=== PATIENT | male | born 1975 | race Caucasian/White ===

== ENCOUNTER 2020-01-14 16:06 | Inpatient (IN) | payer MEDICARE, MEDICAID ==
[~2020-01-14] VITALS: Ht 177.8 cm; Wt 95.7 kg
[2020-01-14] MEDS ORDERED: EFFEXOR37.5 MG PO (16:29)
[2020-01-14] MEDS ORDERED: BUSPAR 15 MG TA15 MG PO (16:29)
[2020-01-14 17:11] LABS: BASOPHILS 0.4 % (0-2); EOSINOPHILS 2.5 % (0-7); HEMATOCRIT 44.1 % (42.0-54.0); HEMOGLOBIN 15.2 g/dL (13.5-17.5); IMMATURE GRANULOCYTES 0.2 % (0-5); LYMPHOCYTES 19.9 % (15-50); MCH 31.5 pg (26.0-34.0); MCHC 34.5 g/dL (31.0-37.0); MCV 91.3 fL (80.0-100.0); MEAN PLATELET VOLUME 8.7 fL (7.4-10.4); MONOCYTES 9.1 % (2-11); NEUTROPHILS 67.9 % (40-80); PLATELET COUNT 337 10x3/uL (130-400); RBC 4.83 10x6/uL (4.20-6.10); RDW 13.5 % (11.5-14.5); WBC 11.4 10x3/uL (4.8-10.8)
[2020-01-14 17:22] LABS: CALC OSMOLALITY 278 mosm/kg (275-300); CALCIUM 9.3 mg/dL (8.5-10.1); CARBON DIOXIDE 27.5 mmol/L (21.0-32.0); CHLORIDE - SERUM 103 mmol/L (98-107); GLUCOSE 87 mg/dL (74-106); SODIUM 140 mmol/L (136-145); UREA NITROGEN 15 mg/dL (7-18); eGFR NON AFRICAN AMERICAN 87 mL/min (90-120)
[2020-01-14 17:29] LABS: ALKALINE PHOSPHATASE 178 U/L (30-120); ALT (SGPT) 70 U/L (10-68); BILIRUBIN - TOTAL 0.55 mg/dL (0.2-1.3); PROTEIN - SERUM 8.2 g/dL (6.4-8.2)
[2020-01-14 17:46] LABS: AMYLASE - SERUM 418 U/L (25-115); LIPASE 2358 U/L (73-393); TROPONIN-I < 0.017 ng/mL (0.000-0.060)
[2020-01-14 19:11] LABS: BILIRUBIN NEGATIVE (NEGATIVE); GLUCOSE NEGATIVE (NEGATIVE); KETONE NEGATIVE (NEGATIVE); NITRITE NEGATIVE (NEGATIVE); SPECIFIC GRAVITY 1.015 (1.005-1.020); UROBILINOGEN NORMAL (NORMAL)
[2020-01-14 20:00] VITALS: BP 142/92
[2020-01-14 21:00] VITALS: BP 163/92
--- NOTE | 2020-01-14 21:08 | NUR ---
PT LYING SUPINE IN BED. NO ACUTE DISTRESS NOTED. PT DENIES ANY NEEDS AT THIS TIME. WILL CONTINUE TO MONITOR.
--- NOTE | 2020-01-14 22:13 | NUR ---
RECEIVED PT VIA WC FROM ED, PT TO ROOM 1223, PT TRANSFERS SELF TO BED, IV IN RIGHT AC INTACT WITH NO REDNESS OR EDEMA, NS TO PUMP INFUSING AT 150 ML/HR, INFORMED PT THAT I WILL BE BACK IN A FEW MINUTES TO START ADMISSION ASSESSMENT, PT VERBALIZES UNDERSTANDING, PT ORIENTED TO ROOM, BED IN LOW POSITION, SIDE RAILS X 2, CALL LIGHT IN REACH
[2020-01-14 22:19] VITALS: BP 158/98; BMI 30.3
--- NOTE | 2020-01-14 22:19 | NUR ---
ADMISSION ASSESSMENT, HISTORY, AND MED REC INITIATED
--- NOTE | 2020-01-14 23:08 | NUR ---
ADMISSION HISTORY, ASSESSMENT, AND MED REC COMPLETED, PT CHANGED INTO GOWN, REQUESTS TO LEAVE SHORTS ON, PT UP TO BR, VOIDED WITH NO DIFFICULTY, PT BACK TO BED, NEW BAG OF NS HUNG VIA PUMP INFUSING AT 150 ML/HR, PT REQUEST PAIN MED AT THIS TIME
--- NOTE | 2020-01-14 23:13 | NUR ---
ADM MORPHINE, DILUTED IN 5MLS OF NS, AND ZOFRAN SIVP PER MD ORDERS, SKID SOCKS PLACED ON AT THIS TIME, PT INST TO USE CALL LIGHT WHEN NEEDING TO GET UP TO VOID, PT VERBALIZES UNDERSTANDING, PT INST ON NPO STATUS, VERBALIZES UNDERSTANDING, PT DENIES FURTHER NEEDS, BED IN LOW POSITION, SIDE RAILS X 2, CALL LIGHT IN REACH
[2020-01-15] VITALS (10 sets, daily range): BP systolic 126–186; BP diastolic 76–111; Ht 177.8 cm; Wt 95.7 kg
--- NOTE | 2020-01-15 00:30 | NUR ---
PT RESTING WITH EYES CLOSED, RESP QUIET, NO DISTRESS NOTED, LEFT UNDISTURBED AT THIS TIME
--- NOTE | 2020-01-15 01:29 | NUR ---
PT RESTING WITH EYES CLOSED, RESP QUIET, NO DISTRESS NOTED, LEFT UNDISTURBED AT THIS TIME, BED IN LOW POSITION, SIDE RAILS X 2, CALL LIGHT IN REACH
--- NOTE | 2020-01-15 03:22 | NUR ---
PT AWAKE, VS OBTAINED, PT REFUSES TO WEAR SCD'S, C/O UPPER ABD PAIN, ADM MORPHINE DILUTED IN 5MLS OF NS, SIVP PER MD ORDERS, SEE INES CAMPO, NURSE PRACTITIONER, IN ROOM, REPORT OF BP, PT DENIES FURTHER NEEDS AT THIS TIME, BED IN LOW POSITION, SIDE RAILS X 2, CALL LIGHT IN REACH
--- NOTE | 2020-01-15 05:40 | NUR ---
NEW BAG OF NS HUNG PER MD ORDERS, SEE EMAR
--- NOTE | 2020-01-15 06:06 | NUR ---
PT AWAKE, LAB IN ROOM FOR AM BLOOD DRAW, ADM PROTONIX WITH SMALL SIP OF WATER
[2020-01-15 06:22] LABS: BASOPHILS 0.5 % (0-2); EOSINOPHILS 2.5 % (0-7); HEMATOCRIT 41.3 % (42.0-54.0); HEMOGLOBIN 13.8 g/dL (13.5-17.5); IMMATURE GRANULOCYTES 0.3 % (0-5); LYMPHOCYTES 16.8 % (15-50); MCH 31.2 pg (26.0-34.0); MCHC 33.4 g/dL (31.0-37.0); MONOCYTES 11.3 % (2-11); NEUTROPHILS 68.6 % (40-80); PLATELET COUNT 274 10x3/uL (130-400); RBC 4.42 10x6/uL (4.20-6.10); RDW 13.8 % (11.5-14.5); WBC 10.9 10x3/uL (4.8-10.8)
--- NOTE | 2020-01-15 06:27 | NUR ---
PT UP IN BR, VOMITED MOD AMOUNT, PT BACK TO BED, ADM ZOFRAN SIVP PER MD ORDERS, SEE EMAR, PT DENIES FURTHER NEEDS
[2020-01-15 06:44] LABS: ALBUMIN 3.4 g/dL (3.4-5.0); ALKALINE PHOSPHATASE 224 U/L (30-120); BILIRUBIN - TOTAL 2.53 mg/dL (0.2-1.3); CALCIUM 8.7 mg/dL (8.5-10.1); CARBON DIOXIDE 29.9 mmol/L (21.0-32.0); CHLORIDE - SERUM 104 mmol/L (98-107); CREATININE - SERUM 0.9 mg/dL (0.6-1.3); GLUCOSE 118 mg/dL (74-106); MAGNESIUM - SERUM 1.9 mg/dL (1.8-2.4); MCV 93.4 fL (80.0-100.0); PHOSPHOROUS 3.3 mg/dL (2.5-4.9); POTASSIUM - SERUM 4.2 mmol/L (3.5-5.1); PROTEIN - SERUM 7.1 g/dL (6.4-8.2); SODIUM 140 mmol/L (136-145); eGFR NON AFRICAN AMERICAN > 90 mL/min (90-120)
[2020-01-15 06:57] LABS: ALT (SGPT) 302 U/L (10-68); CALC OSMOLALITY 278 mosm/kg (275-300); UREA NITROGEN 11 mg/dL (7-18)
[2020-01-15 06:58] LABS: APTT 34.8 SECONDS (22.8-39.4); INR 1.03 (0.85-1.17); PROTIME 13.5 SECONDS (11.6-15.0)
--- NOTE | 2020-01-15 07:40 | NUR ---
THIS RN TO ROOM FOR PT VOMITING IN BR TOILET. FACE CLEANED WITH COOL CLOTH. PT BACK TO BED, REMINDED EMESIS BAG IS ON BEDSIDE TABLE FOR USE IF HE DOES NOT HAVE TIME TO MAKE IT TO BR TO VOMIT. PT STATES HE WOULD RATHER GET UP TO BR TO VOMIT. PT C/O PAIN RATED 9/10, REQUESTING PAIN MED. WILL ADMIN ORDERED. SRUx2, CL IN REACH.
--- NOTE | 2020-01-15 08:20 | NUR ---
SHIFT ASSESSMENT COMPLETE, BP NOTED TO BE ELEVATED. WILL TREAT PAIN AND REASSESS. SEE FLOWSHEET FOR ASSESSMENT DOC. SRUx2, CL IN REACH. WILL CONT TO MONITOR.
--- NOTE | 2020-01-15 08:35 | NUR ---
DIRK SAAVEDRA ROUNDING ON DR BRASWELL'S PATIENTS. NOTIFIED OF PT'S BP AND MET APRESOLINE CRITERIA, BUT ALSO JUST PUSHED 4MG MORPHINE. RHONDA STATES MAY BE PAIN RELATED, ORDER RECEIVED TO RECHECK BP BEFORE ADMIN APRESOLINE. ALSO NOTIFIED OF PT'S NAUSEA/VOMITING AFTER PROTONIX PO THIS AM AND CONTINUES AFTER ZOFRAN ADMIN. ORDER RECEIVED TO CHANGE PROTONIX TO IV ROUTE, AND PT MAY HAVE 25MG PHENERGAN IM Q8H PRN N/V. WILL PROCEED ORDERED.
--- NOTE | 2020-01-15 10:08 | NUR ---
CARDIO/NEURO PHONED AND NOTIFIED OF NEED FOR EKG PER ORDER, STATES WILL COME TO UNIT SHORLTY.
--- NOTE | 2020-01-15 13:45 | NUR ---
KATYA, RN TO PT BEDSIDE. PT BACK TO BED FROM SHOWER. IV WRAPPING REMOVED AND IV FLUIDS RESUMED ORDERED. RIGHT ARM PLASTIC COVERING REMOVED FROM DRESSING OVER BURN, NOTED TO BE C/D/I. SCD'S REPLACED TO LE BILAT. PT DENIES NEEDS. SRUx2, WILL CONT TO MONITOR.
--- NOTE | 2020-01-15 14:34 | NUR ---
Jacob ELLIS APRN NOTIFIED OF PT'S BP POST MORPHINE DOSE AT 1335 OF 186/107, FOLLOWED BY 10MG APRESOLINE IV PER ORDER WITH PARAMETERS. INFORMED THAT BP RECHECK AT 1415 WAS 173/111. ORDER RECEIVED TO OBTAIN MANUAL BP AND NOTIFY OF RESULTS.
--- NOTE | 2020-01-15 14:48 | NUR ---
DIRK SAAVEDRA NOTIFIED OF MANUAL BP RESULT AND PT VOMITING. STATES WILL ENTER ORDERS AND ADJUST MEDS.
--- NOTE | 2020-01-15 15:16 | NUR ---
BUSPAR AND LISINOPRIL ADMIN PO ORDERED, PT DRY HEAVING. ZOFRAN DRIP INFUSING ORDERED, COOL CLOTH GIVEN ALONG WITH EXTRA EMESIS BAGS. PT REFUSES NEEDING PRN PHENERGAN IM. WILL CONT TO MONITOR.
--- NOTE | 2020-01-15 16:52 | NUR ---
DR MEEK TO PT ROOM ROUNDING ON PT, NO NEW ORDERS RECEIVED.
--- NOTE | 2020-01-15 17:05 | NUR ---
PT UP TO SHOWER AT THIS TIME. PT PROVIDED SHOWER CHAIR, LINENS AND TOILETRIES. PT INSTRUCTED TO PULL EMERGENCY LIGHT IN SHOWER IF BEGINS TO FEEL FAINT. PT VERBALIZES UNDERSTANDING. BED LINENS CHANGED.
--- NOTE | 2020-01-15 17:15 | NUR ---
DR KENDALL TO PT ROOM FOR ROUNDING, PT STILL SHOWERING, STATES WILL RETURN TO SEE PT LATER.
--- NOTE | 2020-01-15 17:26 | NUR ---
PT FINISHED WITH SHOWER. PT BACK TO BED, TEXTING ON PHONE. PIV SITE CLEAR. PT STATES "I FEEL SO MUCH BETTER SINCE MY SHOWER".
--- NOTE | 2020-01-15 19:30 | NUR ---
REPORT GIVEN BY RANULFO DODGE
--- NOTE | 2020-01-15 19:30 | NUR ---
REPORT GIVEN BY RANULFO DODGE
--- NOTE | 2020-01-15 20:00 | NUR ---
IN PT ROOM FOR VS. HE WANTS HIS DRESSING CHANGE DONE "RIGHT NOW" I EXPLAINED THAT I COULD NOT DO IT RIGHT THAT MINUTE AND HE WAS OK WITH THAT. HE IS DOING WELL. HE IS USING HIS FUNDRAISING COORDINATOR PUMP. HEART SOUNDS WNL. LUNGS SOUND CLEAR. BOWEL SOUNDS HEARD. HIS DRESSING NOW IS DRY AND INTACT. PT IS ABLE TO SEE THE BIG BLISTER RIGHT UNDER THE DRESSING AND WANTS ME TO POP IT. I EXPLAINED THAT THE BLISTERS NEED TO STAY BLISTERS FOR LONG POSSIBLE.
--- NOTE | 2020-01-15 20:00 | NUR ---
IN TO ASSESS PT. UPON ENTERING ROOM PT HAD HIS COVERS PULLED BACK AND STROKING HIS GENITALIA. PT REQUESTED PAIN MEDS. ASSESSMENT WAS COMPLETED AT BEDSIDE. SEE DOCUMENTATION. IV INFUSING AT 125 ML/HR IN HIS RIGHT AC. NO SIGNS OF INFILTRATION. PT GETS UP TO GO TO THE BATHROOM WITHOUT ASSISTANCE. PT STATES HIS PAIN IS IN HIS ABDOMEN.
--- NOTE | 2020-01-15 21:00 | NUR ---
IN PT ROOM TO GIVE PAIN MEDICATION. PT ONCE AGAIN HAD HIS GENITALIA ON DISPLAY WITH STROKING MOTION. PT RATES PAIN AN 8.
--- NOTE | 2020-01-15 22:00 | NUR ---
CHECKED IN WITH PT. HE STATES HE CANNOT TELL ANY CHANGE IN HIS PAIN SINCE HE GOT HIS IV INJECTION OF DILAUDID. STILL PLAYING WITH [employer]. PT DOES COVER HIMSELF UP WHEN NURSE WALKS IN. NURSE ALWAYS KNOCKS BEFORE ENTERING ROOM. THERE IS A VERY UNPLEASANT ODOR IN PT ROOM.
--- NOTE | 2020-01-15 23:00 | NUR ---
DRESSING CHANGED PERFORMED. DRESSING WAS REMOVED WITH SCISSORS. USING STERILE GLOVES BACTROBAN COVERED HIS LEFT ARM TO ABOVE THE ELBOW. PT HAD BACTROBAN RUBBED ALL OVER ARM USING STERILE GLOVES. BURN SITE IS MAROON AND LEGGETT IN COLOR. NON ADHERENT PADS USED TO COVER ARM. KERLEX GAUZE WAS USED TO WRAP THE ARM A LOOSE DRESSING. PT TOLERATED THE PROCEDURE WELL. HE STATES HE IS GOING TO SLEEP.
[2020-01-16] VITALS: BP 120/64
--- NOTE | 2020-01-16 | NUR ---
PT SLEEPING. AWAKE FOR VS. NO C/O
--- NOTE | 2020-01-16 | NUR ---
IN ROOM FOR VS. PT REQUESTING PAIN MEDS RATES PAIN AT AN 8. I TOLD HIM THAT IT WOULD BE ANOTHER HOUR BEFORE PAIN MEDS DUE.
--- NOTE | 2020-01-16 01:00 | NUR ---
PAIN MED GIVEN TO PT. HE ONCE AGAIN IS WITH LEFT HAND ON GENATALIA.
[2020-01-16 04:30] VITALS: BP 112/62
--- NOTE | 2020-01-16 05:55 | NUR ---
TALK TO RADIOTELEGRAPHIST. NO C/O IV CONT TO INFUSE AT 125ML/HR
[2020-01-16 06:23] LABS: BASOPHILS 0.4 % (0-2); EOSINOPHILS 4.8 % (0-7); HEMOGLOBIN 14.5 g/dL (13.5-17.5); IMMATURE GRANULOCYTES 0.2 % (0-5); LYMPHOCYTES 23.5 % (15-50); MCH 31.5 pg (26.0-34.0); MCHC 33.7 g/dL (31.0-37.0); MCV 93.3 fL (80.0-100.0); MEAN PLATELET VOLUME 9.2 fL (7.4-10.4); MONOCYTES 9.7 % (2-11); NEUTROPHILS 61.4 % (40-80); PLATELET COUNT 314 10x3/uL (130-400); RBC 4.61 10x6/uL (4.20-6.10); RDW 13.7 % (11.5-14.5); WBC 10.4 10x3/uL (4.8-10.8)
[2020-01-16 06:46] LABS: ALBUMIN 3.6 g/dL (3.4-5.0); ALKALINE PHOSPHATASE 300 U/L (30-120); ALT (SGPT) 305 U/L (10-68); BILIRUBIN - TOTAL 3.41 mg/dL (0.2-1.3); CALC OSMOLALITY 279 mosm/kg (275-300); CALCIUM 8.9 mg/dL (8.5-10.1); CARBON DIOXIDE 28.4 mmol/L (21.0-32.0); CHLORIDE - SERUM 105 mmol/L (98-107); CREATININE - SERUM 0.9 mg/dL (0.6-1.3); GLUCOSE 71 mg/dL (74-106); MAGNESIUM - SERUM 1.7 mg/dL (1.8-2.4); PHOSPHOROUS 3.1 mg/dL (2.5-4.9); POTASSIUM - SERUM 4.2 mmol/L (3.5-5.1); SODIUM 142 mmol/L (136-145); UREA NITROGEN 10 mg/dL (7-18); eGFR NON AFRICAN AMERICAN > 90 mL/min (90-120)
[2020-01-16 08:11] LABS: HEPATITIS C ANTIBODY <0.1 S/CO RAT (0.0-0.9)
--- NOTE | 2020-01-16 08:21 | NUR ---
MG LEVEL 1.7. PHARMACY NOTIFIED OF NEED FOR MG RIDER AND WILL BRING TO UNIT.
[2020-01-16 08:59] VITALS: BP 135/96
[2020-01-16 09:10] LABS: ANA REFLEX - DIRECT Negative (Negative)
[2020-01-16 09:44] LABS: LIPASE 2206 U/L (73-393)
[2020-01-16 09:45] LABS: AMYLASE - SERUM 583 U/L (25-115)
--- NOTE | 2020-01-16 10:36 | NUR ---
PAIN REASSESSMENT COMPLETED. LAYING IN SEMI-FOWLERS POSITION RESTING WITH EYES CLOSED. RESP REGULAR AND UNLABORED, NO S/S OF DISTRESS NOTED. BED IN LOW POSIITON WITH SRUP X2. CALL LIGHT AND PHONE WITHIN REACH. WILL CONTINUE TO MONITOR.
[2020-01-16 11:00] VITALS: BP 170/92
--- NOTE | 2020-01-16 12:34 | NUR ---
REPORT CALLED TO RANULFO BERNARDO.
--- NOTE | 2020-01-16 13:38 | NUR ---
PT TO ROOM 2225 FOR CONT CARE. RANULFO BERNARDO NOTIFIED AND WILL RESUME CARE. PT ORIENTED TO ROOM AND CALL LIGHT USE VERBALIZES UNDERSTANDING. CONTINUES TO REFUSE SCD'S. BED IN LOW POSITION WITH SRUP X2. CALL LIGHT AND PHONE WITHIN REACH.
--- NOTE | 2020-01-16 13:42 | NUR ---
ALERT AND ORIENTED TO SELF AND FAMILIAR FACES DUE TO COGNITIVE DEFICIT.IV NOTED TO RT. A/C WITH NO S/S OF INFECTION/INFILTRATION.BOWEL SOUNDS NOTED WITH RUQ ABDOMINAL PAIN ON PALPATION. ENCOURAGED TO USE CALL LIGHT FOR ASSIST.
--- NOTE | 2020-01-16 18:57 | MORECARE ---
CASE MANAGEMENT DISCHARGE SUMMARY PATIENT: VINI VERGARA UNIT: [id number] ADM DATE: 01/14/20 AGE: 44 : 77 SEX: M ROOM/BED: D.2225 AUTHOR: JOSE MANUEL MENDOZA PHYSICIAN: REFERRING PHYSICIAN: DARIO BRASWELL MD DATE OF SERVICE: 01/16/20 Discharge Plan Patient Name: VINI VERGARA Facility: [facility]:[place] : 1975 Planned Disposition: Anticipated Discharge Date: Discharge Date: Expected LOS: Initial Reviewer: [email or web address] Initial Review Date: 01/14/2020 Generated: 01/16/20 7:57 pm Comments DCP- Discharge Planning Updated by [email or web address]: Radha Hodgson on 01/16/20 5:[address] CM met with patient to discuss initial discharge planning. Patient is in agreement to proceed with the assessment. Patient reports that he lives at [facility]. Patient is alert/oriented. Stairs/steps: No. PCP: None. Pharmacy: [facility]. Patient states he has been able to obtain all of his prescribed medications. HHS: No. DME: No. Patient does not give permission to speak with family members/care givers. Emergency contact: Corin Jim (friend) [phone]. 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 CM discussed the availability of HH, Rehab, DME services. Patient denies the need for additional services at this time and feels safe returning to previous environment. Patient was just DC'd from [facility] (psych) this Monday.Patient denies the use of community resources KNURLING MACHINE TENDER. Transportation at time of discharge: [facility]. Patient plans to move back to [place] at the beginning of the month. CM will assist PRN with DC Needs/plans. Coverage Notice Reviewer: [id number] - Radha Hodgson Notice Issued Date-Time: 01/16/2020 18:47 Notice Type: IM Admission Notice Notice Delivered To: Patient Relationship to Patient: Self Staff Analyst Name: Delfino Vergara Delivery Method: HAND - Hand Delivered Melanie Days: Prior Verbal Notification: Recipient Understood Notice: Yes Recipient Signature: Yes Med Rec Note Co-signed by Attending: Coverage Notice Comment: IMM signed by and given to patient. Original on the chart. Patient Name: VINI VERGARA Page [phone] at 1857 All edits/amendments must be made on the electronic document DICTATION DATE: 01/16/201856 [employer]LAY [employer]ODUCTS MACHINE OPERATOR: DANIEL 01/16/201856 RPT#: [id number] DC DATE: STATUS: ADM IN [facility] [address] [place] [address] END OF REPORT
[2020-01-16 20:00] VITALS: BP 154/84
[2020-01-17 04:00] VITALS: BP 168/89
[2020-01-17 04:48] LABS: BASOPHILS 0.6 % (0-2); EOSINOPHILS 5.9 % (0-7); HEMOGLOBIN 14.7 g/dL (13.5-17.5); IMMATURE GRANULOCYTES 0.2 % (0-5); LYMPHOCYTES 20.7 % (15-50); MCHC 34.2 g/dL (31.0-37.0); MCV 93.5 fL (80.0-100.0); MEAN PLATELET VOLUME 8.9 fL (7.4-10.4); MONOCYTES 10.6 % (2-11); PLATELET COUNT 295 10x3/uL (130-400); RDW 13.6 % (11.5-14.5); WBC 9.8 10x3/uL (4.8-10.8)
[2020-01-17 05:10] LABS: ALBUMIN 3.7 g/dL (3.4-5.0); ALKALINE PHOSPHATASE 354 U/L (30-120); CALC OSMOLALITY 276 mosm/kg (275-300); CARBON DIOXIDE 27.8 mmol/L (21.0-32.0); CHLORIDE - SERUM 104 mmol/L (98-107); CREATININE - SERUM 0.9 mg/dL (0.6-1.3); GLUCOSE 71 mg/dL (74-106); MAGNESIUM - SERUM 1.9 mg/dL (1.8-2.4); PROTEIN - SERUM 7.6 g/dL (6.4-8.2); SODIUM 140 mmol/L (136-145); UREA NITROGEN 12 mg/dL (7-18); eGFR NON AFRICAN AMERICAN > 90 mL/min (90-120)
[2020-01-17 05:11] LABS: ALT (SGPT) 228 U/L (10-68); AMYLASE - SERUM 415 U/L (25-115); LIPASE 2299 U/L (73-393)
[2020-01-17 08:47] VITALS: BP 159/90
--- NOTE | 2020-01-17 09:00 | NUR ---
ALERT AND ORIENTED WITH IVF AND ZPFRAN GTT INFUSING AT PRESCRIBED RAT3E TO RT. A/C W/O ANY S/S OF INFECTION/INFILTRATION. LUCILA SINGH PRN GOR GENERALIZED ABDOMINAL PAIN 05/15 WITH MEDICATION EFFECTIVE. PATIENT REFUSES SCD'S AT THIS TIME. UP ADLIB TO BATHROOM. ENCOURAGED TO USE CALL LIGHT FOR ASSSIT.
[2020-01-17 12:38] VITALS: BP 166/94
[2020-01-17 15:10] LABS: IGG SUBCLASS 1 777 mg/dL (248-810); IGG SUBCLASS 2 276 mg/dL (130-555); IGG SUBCLASS 3 116 mg/dL (15-102); IGG SUBCLASS 4 16 mg/dL (2-96); IGGS - IGG SERUM 1206 mg/dL (700-1600)
[2020-01-17 17:16] VITALS: BP 161/92
[2020-01-17 20:00] VITALS: BP 177/100
[2020-01-18 04:00] VITALS: BP 145/82
[2020-01-18 05:55] LABS: BASOPHILS 0.4 % (0-2); EOSINOPHILS 5.5 % (0-7); HEMATOCRIT 43.8 % (42.0-54.0); HEMOGLOBIN 14.7 g/dL (13.5-17.5); IMMATURE GRANULOCYTES 0.2 % (0-5); LYMPHOCYTES 18.4 % (15-50); MCH 31.6 pg (26.0-34.0); MCHC 33.6 g/dL (31.0-37.0); MCV 94.2 fL (80.0-100.0); MEAN PLATELET VOLUME 9.2 fL (7.4-10.4); MONOCYTES 9.3 % (2-11); NEUTROPHILS 66.2 % (40-80); PLATELET COUNT 313 10x3/uL (130-400); RBC 4.65 10x6/uL (4.20-6.10); RDW 13.7 % (11.5-14.5); WBC 10.6 10x3/uL (4.8-10.8)
[2020-01-18 06:15] LABS: ALBUMIN 3.5 g/dL (3.4-5.0); ALKALINE PHOSPHATASE 316 U/L (30-120); ALT (SGPT) 173 U/L (10-68); CALC OSMOLALITY 280 mosm/kg (275-300); CARBON DIOXIDE 30.4 mmol/L (21.0-32.0); CHLORIDE - SERUM 103 mmol/L (98-107); CREATININE - SERUM 0.9 mg/dL (0.6-1.3); GLUCOSE 92 mg/dL (74-106); MAGNESIUM - SERUM 1.8 mg/dL (1.8-2.4); PHOSPHOROUS 3.7 mg/dL (2.5-4.9); POTASSIUM - SERUM 3.8 mmol/L (3.5-5.1); PROTEIN - SERUM 7.4 g/dL (6.4-8.2); SODIUM 141 mmol/L (136-145); UREA NITROGEN 12 mg/dL (7-18); eGFR NON AFRICAN AMERICAN > 90 mL/min (90-120)
[2020-01-18 06:25] LABS: AMYLASE - SERUM 222 U/L (25-115); LIPASE 1662 U/L (73-393)
[2020-01-18 08:08] VITALS: BP 146/75
--- NOTE | 2020-01-18 10:21 | NUR ---
RESTING IN BED, NO DISTRESS NOTED, IV INFUSING, CONT TO MONITOR PAIN AND INTAKE
[2020-01-18 12:43] VITALS: BP 167/93
[2020-01-18 17:05] VITALS: BP 139/95
[2020-01-18 19:46] VITALS: BP 160/91
[2020-01-19 01:20] VITALS: BP 145/75
[2020-01-19 05:12] VITALS: BP 136/75
[2020-01-19 05:20] LABS: BASOPHILS 0.7 % (0-2); EOSINOPHILS 5.3 % (0-7); HEMOGLOBIN 14.9 g/dL (13.5-17.5); IMMATURE GRANULOCYTES 0.1 % (0-5); LYMPHOCYTES 25.1 % (15-50); MCH 31.8 pg (26.0-34.0); MCHC 33.9 g/dL (31.0-37.0); MONOCYTES 11.1 % (2-11); NEUTROPHILS 57.7 % (40-80); PLATELET COUNT 307 10x3/uL (130-400); RBC 4.68 10x6/uL (4.20-6.10); RDW 13.6 % (11.5-14.5); WBC 9.2 10x3/uL (4.8-10.8)
[2020-01-19 05:33] LABS: ALBUMIN 3.5 g/dL (3.4-5.0); ALKALINE PHOSPHATASE 273 U/L (30-120); BILIRUBIN - TOTAL 0.82 mg/dL (0.2-1.3); CALC OSMOLALITY 280 mosm/kg (275-300); CARBON DIOXIDE 31.5 mmol/L (21.0-32.0); CHLORIDE - SERUM 103 mmol/L (98-107); CREATININE - SERUM 0.8 mg/dL (0.6-1.3); GLUCOSE 95 mg/dL (74-106); MAGNESIUM - SERUM 1.7 mg/dL (1.8-2.4); PHOSPHOROUS 3.9 mg/dL (2.5-4.9); POTASSIUM - SERUM 3.9 mmol/L (3.5-5.1); PROTEIN - SERUM 7.4 g/dL (6.4-8.2); SODIUM 141 mmol/L (136-145); UREA NITROGEN 12 mg/dL (7-18); eGFR NON AFRICAN AMERICAN > 90 mL/min (90-120)
[2020-01-19 05:35] LABS: ALT (SGPT) 123 U/L (10-68); AMYLASE - SERUM 149 U/L (25-115); LIPASE 794 U/L (73-393)
[2020-01-19 08:06] VITALS: BP 175/88
--- NOTE | 2020-01-19 09:00 | NUR ---
ASSESSMENT PER FLOW SHEET. PATIENT IS WITHOUT DISTRESS.
--- NOTE | 2020-01-19 11:30 | NUR ---
MEDS ORDERED FOR NAUSEA
[2020-01-19 12:34] VITALS: BP 151/99
[2020-01-19 16:09] VITALS: BP 151/82
[2020-01-19 20:00] VITALS: BP 153/86
[2020-01-20] VITALS: BP 137/79
[2020-01-20 04:00] VITALS: BP 109/70
[2020-01-20 06:44] LABS: BASOPHILS 0.3 % (0-2); EOSINOPHILS 4.7 % (0-7); HEMATOCRIT 42.7 % (42.0-54.0); HEMOGLOBIN 14.3 g/dL (13.5-17.5); IMMATURE GRANULOCYTES 0.3 % (0-5); LYMPHOCYTES 19.3 % (15-50); MCH 31.4 pg (26.0-34.0); MCHC 33.5 g/dL (31.0-37.0); MCV 93.6 fL (80.0-100.0); MEAN PLATELET VOLUME 9.3 fL (7.4-10.4); MONOCYTES 10.5 % (2-11); NEUTROPHILS 64.9 % (40-80); PLATELET COUNT 302 10x3/uL (130-400); RBC 4.56 10x6/uL (4.20-6.10); RDW 13.9 % (11.5-14.5)
[2020-01-20 06:49] LABS: WBC 11.9 10x3/uL (4.8-10.8)
[2020-01-20 07:16] LABS: CALC OSMOLALITY 280 mosm/kg (275-300); CARBON DIOXIDE 31.6 mmol/L (21.0-32.0); CHLORIDE - SERUM 104 mmol/L (98-107); CREATININE - SERUM 0.9 mg/dL (0.6-1.3); GLUCOSE 92 mg/dL (74-106); POTASSIUM - SERUM 3.8 mmol/L (3.5-5.1); SODIUM 141 mmol/L (136-145); UREA NITROGEN 12 mg/dL (7-18); eGFR NON AFRICAN AMERICAN > 90 mL/min (90-120)
[2020-01-20 08:10] LABS: LIPASE 4701 U/L (73-393)
[2020-01-20 08:11] LABS: AMYLASE - SERUM 515 U/L (25-115)
[2020-01-20 09:09] VITALS: BP 149/83
--- NOTE | 2020-01-20 09:21 | NUR ---
NOTIFIED DR. SINGH ABOUT AMYLASE INCREASE. STATED TO TELL DR. MEEK TO SEE IF HE NEEDED A DIET CHANGE OR ANYTHING ELSE. PAGED DR. MEEK.
[2020-01-20 12:20] VITALS: BP 114/59
[2020-01-20 17:28] VITALS: BP 144/87
[2020-01-20 21:48] VITALS: BP 148/87
[2020-01-21 01:07] VITALS: BP 157/94
[2020-01-21 05:13] LABS: BASOPHILS 0.9 % (0-2); EOSINOPHILS 6.1 % (0-7); HEMATOCRIT 45.6 % (42.0-54.0); IMMATURE GRANULOCYTES 0.2 % (0-5); LYMPHOCYTES 22.7 % (15-50); MCH 31.7 pg (26.0-34.0); MCHC 32.9 g/dL (31.0-37.0); MEAN PLATELET VOLUME 9.2 fL (7.4-10.4); MONOCYTES 9.3 % (2-11); NEUTROPHILS 60.8 % (40-80); PLATELET COUNT 313 10x3/uL (130-400); RBC 4.73 10x6/uL (4.20-6.10); RDW 13.6 % (11.5-14.5); WBC 9.6 10x3/uL (4.8-10.8)
[2020-01-21 05:21] LABS: MCV 96.4 fL (80.0-100.0)
[2020-01-21 05:40] LABS: ALBUMIN 3.7 g/dL (3.4-5.0); ALKALINE PHOSPHATASE 412 U/L (30-120); BILIRUBIN - TOTAL 0.85 mg/dL (0.2-1.3); CALC OSMOLALITY 277 mosm/kg (275-300); CARBON DIOXIDE 33.8 mmol/L (21.0-32.0); CHLORIDE - SERUM 102 mmol/L (98-107); GLUCOSE 94 mg/dL (74-106); POTASSIUM - SERUM 3.7 mmol/L (3.5-5.1); PROTEIN - SERUM 7.8 g/dL (6.4-8.2); SODIUM 139 mmol/L (136-145); UREA NITROGEN 13 mg/dL (7-18); eGFR NON AFRICAN AMERICAN 87 mL/min (90-120)
[2020-01-21 05:56] LABS: ALT (SGPT) 170 U/L (10-68); AMYLASE - SERUM 322 U/L (25-115); LIPASE 1406 U/L (73-393)
[2020-01-21 06:00] VITALS: BP 140/82
[2020-01-21 09:12] VITALS: BP 124/54
[2020-01-21 13:06] VITALS: BP 158/92
[2020-01-21 17:03] VITALS: BP 142/88
--- NOTE | 2020-01-21 19:05 | NUR ---
ALERT AND ORIENTED WHEN ENTERING THE ROOM. PATIENT PLAYING ON CELL PHONE. ACTIVE BOWEL SOUNDS. EDUCATED ON CLEAR LIQUID DIET. ASKS WHEN PAIN MEDICINE IS AVAILABLE. LOOKED AT EMAR AND PATIENT JUST RECEIVED DOSE AT 1830. INSTRUCTED THAT IT WOULD BE AVAILABLE AROUND 2230. PATIENT VERBALIZES UNDERSTANDING. CPOC.
[2020-01-21 20:00] VITALS: BP 137/89
--- NOTE | 2020-01-21 22:15 | NUR ---
PATIENT HIT CALL LIGHT, STATES "JUST REMINDING YOU THAT ITS ALMOST TIME FOR MY PAIN MEDICINE." RATES PAIN 06/15. TOLD PATIENT IT WOULD BE AVAILABLE IN ABOUT 15-20 MINUTES.
[2020-01-22] VITALS: BP 140/102
--- NOTE | 2020-01-22 01:40 | NUR ---
ADMINISTERED PRN ZOFRAN PER REQUEST/PER ORDER. CPOC.
[2020-01-22 04:00] VITALS: BP 130/79
--- NOTE | 2020-01-22 04:07 | NUR ---
I have reviewed this patient and I concur with the Shift Assessment completed by the Licensed Practical Nurse today this shift.
[2020-01-22 05:25] LABS: EOSINOPHILS 7.7 % (0-7); HEMATOCRIT 46.6 % (42.0-54.0); HEMOGLOBIN 15.4 g/dL (13.5-17.5); IMMATURE GRANULOCYTES 0.2 % (0-5); LYMPHOCYTES 25.7 % (15-50); MCH 31.6 pg (26.0-34.0); MCV 95.5 fL (80.0-100.0); MEAN PLATELET VOLUME 9.5 fL (7.4-10.4); MONOCYTES 11.2 % (2-11); NEUTROPHILS 54.2 % (40-80); PLATELET COUNT 304 10x3/uL (130-400); RBC 4.88 10x6/uL (4.20-6.10); RDW 13.6 % (11.5-14.5); WBC 8.4 10x3/uL (4.8-10.8)
[2020-01-22 05:58] LABS: ALBUMIN 3.7 g/dL (3.4-5.0); ALKALINE PHOSPHATASE 475 U/L (30-120); BILIRUBIN - TOTAL 1.71 mg/dL (0.2-1.3); CALC OSMOLALITY 274 mosm/kg (275-300); CALCIUM 8.9 mg/dL (8.5-10.1); CARBON DIOXIDE 31.7 mmol/L (21.0-32.0); CHLORIDE - SERUM 101 mmol/L (98-107); CREATININE - SERUM 0.9 mg/dL (0.6-1.3); GLUCOSE 93 mg/dL (74-106); SODIUM 138 mmol/L (136-145); UREA NITROGEN 10 mg/dL (7-18); eGFR NON AFRICAN AMERICAN > 90 mL/min (90-120)
[2020-01-22 06:02] LABS: AMYLASE - SERUM 424 U/L (25-115)
[2020-01-22 06:03] LABS: ALT (SGPT) 247 U/L (10-68); LIPASE 2887 U/L (73-393)
--- NOTE | 2020-01-22 06:31 | NUR ---
ZORAIDA CHACON APN TO NOTIFY AMYLASE RESULTS
[2020-01-22 09:06] VITALS: BP 142/76
--- NOTE | 2020-01-22 10:44 | NUR ---
NUTRITION F/U CHART REVIEWED, PT VISIT. TOLERATING CLEAR LIQUIDS. LOW RESIDUE DIET PRIOR TO CURRENT CLEAR LIQUIDS. WILL MONITOR DIET ADVANCEMENT, ASSIST WITH NUTRITION SUPPORT IF NEEDED. RD FOLLOWING
[2020-01-22 12:50] VITALS: BP 151/88
[2020-01-22 16:44] VITALS: BP 137/89
--- NOTE | 2020-01-22 19:30 | NUR ---
PT SITTING UP IN BED WITHOUT DISTRESS, AOX4. IV LEFT HAND INFUSING NS @ 75, NO REDNESS OR SWELLING. STATES PAIN 9/10 IN ABD, SHARP AND TENDER TO TOUCH. DILAUDID GIVEN ORDERED. ASSISTED PT IN CHANGING GOWN, PROVIDED NEW SOCKS AND DEODORANT. DENIES OTHER NEEDS. CL IN REACH, WILL CTM
[2020-01-22 20:00] VITALS: BP 151/91
--- NOTE | 2020-01-22 23:30 | NUR ---
PT STATES PAIN 9/10 IN ABD, GAVE DILAUDID ORDERED. DENIES OTHER NEEDS. CL IN REACH, WILL CTM
[2020-01-23 04:00] VITALS: BP 14/943; BP 174/93
[2020-01-23 04:50] LABS: BASOPHILS 0.7 % (0-2); EOSINOPHILS 8.6 % (0-7); HEMATOCRIT 46.4 % (42.0-54.0); HEMOGLOBIN 15.4 g/dL (13.5-17.5); IMMATURE GRANULOCYTES 0.1 % (0-5); LYMPHOCYTES 29.3 % (15-50); MCH 31.7 pg (26.0-34.0); MCHC 33.2 g/dL (31.0-37.0); MCV 95.5 fL (80.0-100.0); MEAN PLATELET VOLUME 9.2 fL (7.4-10.4); MONOCYTES 10.6 % (2-11); NEUTROPHILS 50.7 % (40-80); PLATELET COUNT 300 10x3/uL (130-400); RBC 4.86 10x6/uL (4.20-6.10); RDW 13.6 % (11.5-14.5)
[2020-01-23 05:26] LABS: ALBUMIN 3.7 g/dL (3.4-5.0); ALKALINE PHOSPHATASE 508 U/L (30-120); CARBON DIOXIDE 32.1 mmol/L (21.0-32.0); CHLORIDE - SERUM 103 mmol/L (98-107); GLUCOSE 85 mg/dL (74-106); POTASSIUM - SERUM 3.8 mmol/L (3.5-5.1); PROTEIN - SERUM 7.9 g/dL (6.4-8.2); SODIUM 140 mmol/L (136-145); eGFR NON AFRICAN AMERICAN 87 mL/min (90-120)
[2020-01-23 05:30] LABS: ALT (SGPT) 353 U/L (10-68); CALC OSMOLALITY 277 mosm/kg (275-300); LIPASE 1489 U/L (73-393); UREA NITROGEN 13 mg/dL (7-18)
--- NOTE | 2020-01-23 09:00 | NUR ---
ASSESSMENT PER FLOW SHEET. PATIENT IS WITHOUT DISTRESS.MONITOR FOR NEEDS.CALL LIGHT IN REACH
[2020-01-23 09:06] VITALS: BP 151/95
[2020-01-23 09:30] LABS: INR 0.91 (0.85-1.17); PROTIME 12.3 SECONDS (11.6-15.0)
[2020-01-23 12:49] VITALS: BP 143/83
[2020-01-23 16:16] VITALS: BP 173/92
--- NOTE | 2020-01-23 18:21 | NUR ---
ATTEMPTED TO GET CONSENTS FOR ERCP IN AM. PT CONTINUED TO TEXT ON HIS PHONE. WILL CHECK BACK
[2020-01-23 20:00] VITALS: BP 163/83
[2020-01-24] VITALS: BP 176/97
[2020-01-24 05:57] LABS: BASOPHILS 0.7 % (0-2); EOSINOPHILS 8.1 % (0-7); HEMATOCRIT 44.5 % (42.0-54.0); HEMOGLOBIN 14.6 g/dL (13.5-17.5); IMMATURE GRANULOCYTES 0.1 % (0-5); LYMPHOCYTES 24.4 % (15-50); MCH 31.3 pg (26.0-34.0); MCHC 32.8 g/dL (31.0-37.0); MCV 95.5 fL (80.0-100.0); MEAN PLATELET VOLUME 9.5 fL (7.4-10.4); MONOCYTES 10.1 % (2-11); NEUTROPHILS 56.6 % (40-80); PLATELET COUNT 307 10x3/uL (130-400); RBC 4.66 10x6/uL (4.20-6.10); RDW 13.8 % (11.5-14.5); WBC 9.1 10x3/uL (4.8-10.8)
[2020-01-24 06:28] LABS: ALBUMIN 3.5 g/dL (3.4-5.0); ALKALINE PHOSPHATASE 463 U/L (30-120); ALT (SGPT) 313 U/L (10-68); CALC OSMOLALITY 280 mosm/kg (275-300); CALCIUM 9.2 mg/dL (8.5-10.1); CHLORIDE - SERUM 103 mmol/L (98-107); CREATININE - SERUM 0.8 mg/dL (0.6-1.3); GLUCOSE 93 mg/dL (74-106); POTASSIUM - SERUM 3.7 mmol/L (3.5-5.1); PROTEIN - SERUM 7.4 g/dL (6.4-8.2); SODIUM 141 mmol/L (136-145); UREA NITROGEN 12 mg/dL (7-18); eGFR NON AFRICAN AMERICAN > 90 mL/min (90-120)
--- NOTE | 2020-01-24 08:00 | NUR ---
ASSESSMENT PER FLOW SHEET. PT IS WITHOUT DISTRESS.NPO FOR PROCEDURE TODAY.CALL LIGHT IN REACH
[2020-01-24 09:39] VITALS: BP 147/95
--- NOTE | 2020-01-24 11:17 | NUR ---
PRE MEDS FOR GI
[2020-01-24 12:10] VITALS: BP 154/96
[2020-01-24 13:55] VITALS: BP 159/91
[2020-01-24 20:00] VITALS: BP 143/91
[2020-01-25] VITALS: BP 154/73; BP 160/95
[2020-01-25 04:00] VITALS: BP 142/88
[2020-01-25 06:30] LABS: EOSINOPHILS 7.7 % (0-7); HEMATOCRIT 41.8 % (42.0-54.0); HEMOGLOBIN 13.6 g/dL (13.5-17.5); IMMATURE GRANULOCYTES 0.2 % (0-5); LYMPHOCYTES 30.3 % (15-50); MCH 31.5 pg (26.0-34.0); MCHC 32.5 g/dL (31.0-37.0); MCV 96.8 fL (80.0-100.0); MEAN PLATELET VOLUME 9.2 fL (7.4-10.4); MONOCYTES 10.3 % (2-11); NEUTROPHILS 50.5 % (40-80); PLATELET COUNT 316 10x3/uL (130-400); RBC 4.32 10x6/uL (4.20-6.10); RDW 13.5 % (11.5-14.5); WBC 8.8 10x3/uL (4.8-10.8)
[2020-01-25 06:51] LABS: ALBUMIN 3.3 g/dL (3.4-5.0); ALKALINE PHOSPHATASE 365 U/L (30-120); BILIRUBIN - TOTAL 1.45 mg/dL (0.2-1.3); CALC OSMOLALITY 274 mosm/kg (275-300); CALCIUM 8.8 mg/dL (8.5-10.1); CARBON DIOXIDE 27.6 mmol/L (21.0-32.0); CHLORIDE - SERUM 103 mmol/L (98-107); CREATININE - SERUM 0.8 mg/dL (0.6-1.3); GLUCOSE 99 mg/dL (74-106); POTASSIUM - SERUM 3.8 mmol/L (3.5-5.1); PROTEIN - SERUM 6.7 g/dL (6.4-8.2); SODIUM 138 mmol/L (136-145); UREA NITROGEN 11 mg/dL (7-18); eGFR NON AFRICAN AMERICAN > 90 mL/min (90-120)
[2020-01-25 06:52] LABS: ALT (SGPT) 187 U/L (10-68)
[2020-01-25 07:00] VITALS: BP 142/85
--- NOTE | 2020-01-25 07:19 | NUR ---
PT SITTING UP IN BED PLAYING ON PHONE, NO S/SX OF DISTRESS, STATED HE HAD A PRETTY DECENT NIGHT. CL IN REACH, VSS, NO NEEDS VOICED AT THIS TIME, CONTINUE WITH PLAN OF CARE
--- NOTE | 2020-01-25 09:06 | NUR ---
PT IS UPSET AGAIN THIS MORNING, ON CL FOR ME TO TAKE HIS TRAY OUT OF HIS ROOM, STATED " I DON'T WANT THAT CRAP! GET IT OUT AND IF THEY BRING ME ANOTHER TRAY LIKE THAT I AM GOING TO THROW IT AT THEM" PT CONTINUED TO CALL NURSING STAFF WELL DOCTORS NAMES, TOLD PT HE IS MORE THAN WELCOME TO SIGN OUT BUT I WILL NOT TOLERATE THE FOUL LANGUAGE OR ATTITUDE, PT CALMED DOWN AND TOOK MORNING MEDS, GAVE PT FRESH WATER AND SODA, CONTINUE WITH PLAN OF CARE
--- NOTE | 2020-01-25 10:06 | NUR ---
I have reviewed this patient and I concur with the Shift Assessment completed by the Licensed Practical Nurse today this shift.
--- NOTE | 2020-01-25 12:24 | MORECARE ---
CASE MANAGEMENT DISCHARGE SUMMARY PATIENT: VINI VERGARA UNIT: [id number] ADM DATE: 01/14/20 AGE: 44 : 77 SEX: M ROOM/BED: D.2225 AUTHOR: KELLY,DOC PHYSICIAN: REFERRING PHYSICIAN: DARIO BRASWELL MD DATE OF SERVICE: 01/25/20 Discharge Plan Patient Name: VINI VERGARA Facility: [facility]:[place] : 1975 Planned Disposition: Anticipated Discharge Date: Discharge Date: Expected LOS: Initial Reviewer: [email or web address] Initial Review Date: 01/14/2020 Generated: 01/25/20 1:23 pm Comments DCP- Discharge Planning Updated by [id number]: Jazmin Laura on 01/25/20 11:[address] PATIENT ASK THE PRIMARY NURSE, NATHALY, TO ADVISE THE DRESSMAKING TEACHER THAT HE LIVES IN [place]. SO NOTED PER REQUEST. NO DISCHARGE ORDER YET, CLEARS TO ADVANCE TOLERATED. POD#1 POST ERCP. LIPASE 1007, ALK PHOS 365 AST 53 ALT 187 TB 1.45. DCP- Discharge Planning Updated by [id number]: Radha Hodgson on 01/16/20 5:[address] CM met with patient to discuss initial discharge planning. Patient is in agreement to proceed with the assessment. Patient reports that he lives at [facility]. Patient is alert/oriented. Stairs/steps: No. PCP: None. Pharmacy: [facility]. Patient states he has been able to obtain all of his prescribed medications. HHS: No. DME: No. Patient does not give permission to speak with family members/care givers. Emergency contact: Corin Jim (friend) [phone]. 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 CM discussed the availability of HH, Rehab, DME services. Patient denies the need for additional services at this time and feels safe returning to previous environment. 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 Transportation at time of discharge: [facility]. Patient plans to move back to [place] at the beginning of the month. CM will assist PRN with DC Needs/plans. Coverage Notice Reviewer: [id number] Sharon Hodgson Notice Issued Date-Time: 01/16/2020 18:47 Notice Type: IM Admission Notice Notice Delivered To: Patient Relationship to Patient: Self Asbestos Shingle Roofer Name: Delfino Vergara Delivery Method: HAND - Hand Delivered Melanie Days: Prior Verbal Notification: Recipient Understood Notice: Yes Recipient Signature: Yes Med Rec Note Co-signed by Attending: Coverage Notice Comment: IMM signed by and given to patient. Original on the chart. Last DP export: 01/16/20 5:57 p Patient Name: VINI VERGARA Page [phone] at 1224 All edits/amendments must be made on the electronic document DICTATION DATE: 01/25/20 122 MANAGER OF LOSS PREVENTION OPERATIONS: DANIEL 01/25/20 1223 RPT#: [id number] DC DATE: STATUS: ADM IN [place] [id number] [place] [address] END OF REPORT
--- NOTE | 2020-01-25 12:47 | NUR ---
PT REQUESTED PAIN MEDICATION AT 10, PULLED PO PAIN MEDICATION PT REFUSED STATING HE WANTS IV, IV NOT DUE UNTIL NOON, ADMINISTERED PRN PAIN MEDICATION IV AND RETURNED PO MEDS TO [facility]. NO OTHER NEEDS AT THIS TIME
--- NOTE | 2020-01-25 12:57 | MORECARE ---
CASE MANAGEMENT DISCHARGE SUMMARY PATIENT: VINI VERGARA UNIT: [id number] ADM DATE: 01/14/20 AGE: 44 : 77 SEX: M ROOM/BED: D.2225 AUTHOR: KELLY,DOC PHYSICIAN: REFERRING PHYSICIAN: DARIO BRASWELL MD DATE OF SERVICE: 01/25/20 Discharge Plan Patient Name: VINI VERGARA Facility: [facility]:[place] : 1975 Planned Disposition: Other Type of Facility Anticipated Discharge Date: 01/25/20 Discharge Date: Expected LOS: 11 Initial Reviewer: [email or web address] Initial Review Date: 01/14/2020 Generated: 01/25/20 1:57 pm Comments DCP- Discharge Planning Updated by [email or web address]: Jazmin Laura on 01/25/20 11:[address] PATIENT ASK THE PRIMARY NURSE, NATHALY, TO ADVISE THE RIBBON HAND THAT HE LIVES IN [place]. SO NOTED PER REQUEST. NO DISCHARGE ORDER YET, CLEARS TO ADVANCE TOLERATED. POD#1 POST ERCP. LIPASE 1007, ALK PHOS 365 AST 53 ALT 187 TB 1.45. DCP- Discharge Planning Updated by [id number]: Radha Hodgson on 01/16/20 5:[address] CM met with patient to discuss initial discharge planning. Patient is in agreement to proceed with the assessment. Patient reports that he lives at [facility]. Patient is alert/oriented. Stairs/steps: No. PCP: None. Pharmacy: [facility]. Patient states he has been able to obtain all of his prescribed medications. HHS: No. DME: No. Patient does not give permission to speak with family members/care givers. Emergency contact: Corin Jim (friend) [phone]. 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 CM discussed the availability of HH, Rehab, DME services. Patient denies the need for additional services at this time and feels safe returning to previous environment. 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 Transportation at time of discharge: [facility]. Patient plans to move back to [place] at the beginning of the month. CM will assist PRN with DC Needs/plans. Coverage Notice Reviewer: [id number] - Radha Astorgalroy Notice Issued Date-Time: 01/16/2020 18:47 Notice Type: IM Admission Notice Notice Delivered To: Patient Relationship to Patient: Self Industrial Roof Plumber Name: Delfino Vergara Delivery Method: HAND - Hand Delivered Melanie Days: Prior Verbal Notification: Recipient Understood Notice: Yes Recipient Signature: Yes Med Rec Note Co-signed by Attending: Coverage Notice Comment: IMM signed by and given to patient. Original on the chart. Last DP export: 01/25/20 11:24 a Patient Name: VINI VERGARA Page [phone] at 1257 All edits/amendments must be made on the electronic document DICTATION DATE: 01/25/20 1257 GROCERY TEAM MEMBER: DANIEL 01/25/20 1257 RPT#: [id number] DC DATE: STATUS: ADM IN [facility] [address] [place] [address] END OF REPORT
--- NOTE | 2020-01-25 13:04 | MORECARE ---
CASE MANAGEMENT DISCHARGE SUMMARY PATIENT: VINI VERGARA UNIT: [id number] ADM DATE: 01/14/20 AGE: 44 : 77 SEX: M ROOM/BED: D.2225 AUTHOR: KELLY,DOC PHYSICIAN: REFERRING PHYSICIAN: DARIO BRASWELL MD DATE OF SERVICE: 01/25/20 Discharge Plan Patient Name: VINI VERGARA Facility: [facility]:[place] : 1975 Planned Disposition: Other Type of Facility Anticipated Discharge Date: 01/25/20 Discharge Date: Expected LOS: 11 Initial Reviewer: [email or web address] Initial Review Date: 01/14/2020 Generated: 01/25/20 2:04 pm Comments DCP- Discharge Planning Updated by [email or web address]: Jazmin Laura on 01/25/20 12:[address] CM spoke with the patient. He will be returning to [facility]. They will provide transportation to home. The contact phone number is [phone]. 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 Cm will speak with his primary nurse, Nathaly. DCP- Discharge Planning Updated by [id number]: Jazmin Laura on 01/25/20 11:[address] PATIENT ASK THE PRIMARY NURSE, NATHALY, TO ADVISE THE MANAGER OF PURCHASING THAT HE LIVES IN [place]. SO NOTED PER REQUEST. NO DISCHARGE ORDER YET, CLEARS TO ADVANCE TOLERATED. POD#1 POST ERCP. LIPASE 1007, ALK PHOS 365 AST 53 ALT 187 TB 1.45. DCP- Discharge Planning Updated by [email or web address]: Radha Hodgson on 01/16/20 5:[address] CM met with patient to discuss initial discharge planning. Patient is in agreement to proceed with the assessment. Patient reports that he lives at [facility]. Patient is alert/oriented. Stairs/steps: No. PCP: None. Pharmacy: [facility]. Patient states he has been able to obtain all of his prescribed medications. HHS: No. DME: No. Patient does not give permission to speak with family members/care givers. Emergency contact: Corin Hernán (friend) [phone]. 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 CM discussed the availability of HH, Rehab, DME services. Patient denies the need for additional services at this time and feels safe returning to previous environment. 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 Transportation at time of discharge: [facility]. Patient plans to move back to [place] at the beginning of the month. CM will assist PRN with DC Needs/plans. Coverage Notice Reviewer: [id number] Sharon Hodgson Notice Issued Date-Time: 01/16/2020 18:47 Notice Type: IM Admission Notice Notice Delivered To: Patient Relationship to Patient: Self Staff Nurse Anesthetist Name: Delfino Vergara Delivery Method: HAND - Hand Delivered Melanie Days: Prior Verbal Notification: Recipient Understood Notice: Yes Recipient Signature: Yes Med Rec Note Co-signed by Attending: Coverage Notice Comment: IMM signed by and given to patient. Original on the chart. Last DP export: 01/25/20 11:57 a Patient Name: VINI VERGARA Page [phone] at 1304 All edits/amendments must be made on the electronic document DICTATION DATE: 01/25/20 1304 RISK ASSESSMENT CONSULTANT: DANIEL 01/25/20 1304 RPT#: [id number] DC DATE: STATUS: ADM IN [facility] [address] [place] [address] END OF REPORT
--- NOTE | 2020-01-25 13:11 | NUR ---
SPOKE WITH ZAHRA MINOR APN, RE NEED TO CONTINUE NORVASC. SHE ADVISES TO CONTINUE AT DISCHARGE.
[2020-01-25] MEDS ORDERED: NORVASC10 MG PO (13:12)
--- NOTE | 2020-01-26 15:50 | MORECARE ---
CASE MANAGEMENT DISCHARGE SUMMARY PATIENT: VINI VERGARA UNIT: [id number] ADM DATE: 01/14/20 AGE: 44 : 77 SEX: M ROOM/BED: D.2225 AUTHOR: KELLY,DOC PHYSICIAN: REFERRING PHYSICIAN: DARIO BRASWELL MD DATE OF SERVICE: 01/26/20 Discharge Plan Patient Name: VINI VERGARA Facility: [facility]:[place] : 1975 Planned Disposition: Other Type of Facility Anticipated Discharge Date: 01/25/20 Discharge Date: 01/25/2020 Expected LOS: 11 Initial Reviewer: [email or web address] Initial Review Date: 01/14/2020 Generated: 01/26/20 4:49 pm Comments DCP- Discharge Planning Updated by [email or web address]: Jazmin Laura on 01/25/20 12:[address] CM spoke with the patient. He will be returning to [facility]. They will provide transportation to home. The contact phone number is [phone]. 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 Cm will speak with his primary nurse, Nathaly. 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 SO NOTED PER REQUEST. NO DISCHARGE ORDER YET, CLEARS TO ADVANCE TOLERATED. POD#1 POST ERCP. LIPASE 1007, ALK PHOS 365 AST 53 ALT 187 TB 1.45. DCP- Discharge Planning Updated by [email or web address]: Radha Hodgson on 01/16/20 5:[address] CM met with patient to discuss initial discharge planning. Patient is in agreement to proceed with the assessment. Patient reports that he lives at [facility]. Patient is alert/oriented. Stairs/steps: No. PCP: None. Pharmacy: [facility]. Patient states he has been able to obtain all of his prescribed medications. HHS: No. DME: No. Patient does not give permission to speak with family members/care givers. Emergency contact: Corin Jim (friend) [phone]. 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 CM discussed the availability of HH, Rehab, DME services. Patient denies the need for additional services at this time and feels safe returning to previous environment. Patient was just DC'd from [facility] [place] (psych) this Monday.Patient denies the use of community resources [employer]KER. Transportation at time of discharge: [facility]. Patient plans to move back to [place] at the beginning of the month. CM will assist PRN with DC Needs/plans. 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 Original on the chart. Last DP export: 01/25/20 12:04 p Patient Name: VINI VERGARA Page [id number] at 1550 All edits/amendments must be made on the electronic document DICTATION DATE: 01/26/201548 BUILDING CERTIFIER: DANIEL 01/26/20 1549 RPT#: [id number] DC DATE:01/25/20 STATUS: DIS IN [facility] [address] [place] [address] END OF REPORT
[2020-01-26] MEDS ORDERED: PRAZOSIN (19:51)
== END 2020-01-25 15:37 | DRG 439 ==
LOC: D.ER 16:06 → D.MS 19:33 → D.WS 19:33 → D.MS 01-16 13:38
PROVIDERS: Family Medicine; Internal Medicine Gastroenterology; ADMIT Internal Medicine Nephrology; ATTEND Internal Medicine Nephrology
PROC: 0F7D8ZZ Dilation of Pancreatic Duct, Via Natural or Artificial Opening Endoscopic (ICD-10-PCS; principal; 2020-01-24 12:30)
DX: K85.90 Acute pancreatitis without necrosis or infection, unspecified (principal); F33.1 Major depressive disorder, recurrent, moderate; R74.0 Nonspecific elevation of levels of transaminase and lactic acid dehydrogenase [LDH]; Z91.11 Patient's noncompliance with dietary regimen

== ENCOUNTER 2020-01-26 18:58 | Emergency (ER) | payer MEDICARE, MEDICAID ==
[~2020-01-26] VITALS: Ht 177.8 cm; Wt 93.2 kg
[~2020-01-26 18:58] MED LIST: BUSPAR 15 MG TA15 MG PO; EFFEXOR37.5 MG PO; NORVASC10 MG PO
[2020-01-26 19:13] LABS: BILIRUBIN NEGATIVE (NEGATIVE); GLUCOSE NEGATIVE (NEGATIVE); KETONE NEGATIVE (NEGATIVE); NITRITE NEGATIVE (NEGATIVE); SPECIFIC GRAVITY 1.005 (1.005-1.020); UROBILINOGEN NORMAL (NORMAL)
[2020-01-26 19:15] LABS: RED CELLS - URINE RARE /hpf (0-5); WHITE CELLS - URINE OCC /hpf (NEGATIVE)
[2020-01-26 19:18] LABS: BASOPHILS 0.9 % (0-2); EOSINOPHILS 4.9 % (0-7); HEMATOCRIT 45.3 % (42.0-54.0); HEMOGLOBIN 15.4 g/dL (13.5-17.5); IMMATURE GRANULOCYTES 0.1 % (0-5); LYMPHOCYTES 24.7 % (15-50); MCH 32.3 pg (26.0-34.0); MONOCYTES 9.5 % (2-11); NEUTROPHILS 59.9 % (40-80); PLATELET COUNT 366 10x3/uL (130-400); RBC 4.77 10x6/uL (4.20-6.10); RDW 13.2 % (11.5-14.5); WBC 10.9 10x3/uL (4.8-10.8)
[2020-01-26 19:22] VITALS: Ht 177.8 cm; Wt 93.2 kg
[2020-01-26 19:24] LABS: UDS - AMPHET NEGATIVE QUAL (NEGATIVE); UDS - BARB NEGATIVE QUAL (NEGATIVE); UDS - BENZO NEGATIVE QUAL (NEGATIVE); UDS - COCAINE NEGATIVE QUAL (NEGATIVE); UDS - OPIATE NEGATIVE QUAL (NEGATIVE); UDS - PCP NEGATIVE QUAL (NEGATIVE); UDS - THC NEGATIVE QUAL (NEGATIVE)
[2020-01-26 19:26] LABS: CALCIUM 9.8 mg/dL (8.5-10.1); CARBON DIOXIDE 27.4 mmol/L (21.0-32.0); CHLORIDE - SERUM 103 mmol/L (98-107); POTASSIUM - SERUM 3.4 mmol/L (3.5-5.1); SODIUM 140 mmol/L (136-145); UREA NITROGEN 11 mg/dL (7-18)
[2020-01-26 19:31] LABS: ALBUMIN 4.1 g/dL (3.4-5.0); ALKALINE PHOSPHATASE 356 U/L (30-120); BILIRUBIN - TOTAL 0.97 mg/dL (0.2-1.3)
[2020-01-26 19:36] LABS: ALT (SGPT) < 10 U/L (10-68); CALC OSMOLALITY 280 mosm/kg (275-300); CREATININE - SERUM 1.1 mg/dL (0.6-1.3); GLUCOSE 161 mg/dL (74-106); PROTEIN - SERUM 8.6 g/dL (6.4-8.2); eGFR NON AFRICAN AMERICAN 78 mL/min (90-120)
[2020-01-26 19:39] LABS: AMYLASE - SERUM 100 U/L (25-115); LIPASE 398 U/L (73-393)
[2020-01-26] MEDS ORDERED: PRAZOSIN (19:51)
--- NOTE | 2020-01-26 20:03 | NUR ---
DR FALCON NOTIFIED AND SITTER AT BEDSIDE, NOTIFIED CHARGE NURSE AND ATTENDING IN REGARDS TO ASSESSMENT FINDINGS. RESOURCES GIVEN TO PT AND SAFETY PLAN INIATED.
[2020-01-26 20:28] LABS: CHOL - HDL RATIO 4.7 ratio (2.3-4.9)
[2020-01-27 00:58] VITALS: BP 162/89
== END 2020-01-27 01:26 ==
LOC: D.ER 18:58
PROVIDERS: Emergency Medicine
DX: F33.9 Major depressive disorder, recurrent, unspecified (principal); R45.851 Suicidal ideations; K85.90 Acute pancreatitis without necrosis or infection, unspecified